=== PATIENT | female | born 1990 | race Caucasian/White ===

== ENCOUNTER 2023-06-08 11:26 | Outpatient (CLI) | payer BC | END 2023-06-08 11:27 | disposition home or self-care (01) | LOC: DTY/OP 11:26 | PROVIDERS: ATTEND Surgery | DX: E66.01 Morbid (severe) obesity due to excess calories (principal) | CPT/HCPCS: 97802 ==

== ENCOUNTER 2023-07-17 14:53 | Outpatient (CLI) | payer BC ==
[2023-07-17 16:55] LABS: #Basophils 0.1 10x3/uL (0.0-0.2); #Eosinphils 0.2 10x3/uL (0.0-0.5); #Monocytes 0.8 10x3/uL (0.0-1.1); #Neutrophils 4.5 10x3/uL (1.5-8.4); %Basophils 0.7 % (0.0-2.0); %Eosinophils 2.7 % (0.0-6.0); %Lymphocytes 31.2 % (18.0-47.0); %Monocytes 9.6 % (0.0-10.0); %Neutrophils 55.6 % (40.0-75.0); Hematocrit 45.5 % (34.9-44.5); Hemoglobin 14.8 g/dL (12.0-15.5); Mean Corpuscular HGB CONC 32.5 g/dL (32.0-36.0); Mean Corpuscular Hemoglobin 28.7 pg (27.0-33.0); Mean Corpuscular Volume 88.3 fl (81.6-98.3); Mean Platelet Volume 10.4 fl (7.4-10.4); Platelet Count 340 10x3/uL (150-450); RBC Distribution Width 13.2 % (11.5-14.5); Red Blood Cell (RBC) Count 5.15 10x6/uL (3.90-5.03); White Blood Cell (WBC) Count 8.1 10x3/uL (3.5-10.5)
[2023-07-17 17:04] LABS: BHCG - Serum Negative (NEGATIVE); Pregs Control Background? CLEAR/WHITE (CLR/WHITE); Pregs Control Bar Appear? YES (CONTROL BAR)
[2023-07-17 17:32] LABS: ALT (SGPT) 45 U/L (8-55); AST (SGOT) 30 U/L (5-34); Albumin 4.4 g/dL (3.5-5.0); Alkaline Phosphatase 71 U/L (40-110); Anion Gap 15 mmol/L (10-20); BUN (Urea Nitrogen) 12 mg/dL (7.0-18.7); Bilirubin, Total 0.5 mg/dL (0.2-1.2); Calc. Creatinine Clearance 0 mL/min (70-130); Calcium 9.7 mg/dL (7.8-10.44); Carbon Dioxide 21 mmol/L (22-29); Chloride 107 mmol/L (98-107); Estimated GFR 96; Globulin 3.6 g/dL (2.4-3.5); Glucose 103 mg/dL (70-105); Potassium 4.4 mmol/L (3.5-5.1); Sodium 139 mmol/L (136-145)
[2023-07-17 20:34] LABS: Hemoglobin A1c 5.4 % (4.0-6.0)
== END 2023-07-17 14:54 | disposition home or self-care (01) ==
LOC: LABBT 14:53
PROVIDERS: ATTEND Surgery
DX: Z01.818 Encounter for other preprocedural examination (principal)
CPT/HCPCS: 80053; 83036; 84703; 85025; 93005; 93010

== ENCOUNTER 2023-07-17 15:00 | Inpatient (IN) | payer BC ==
[2023-07-19 12:46] VITALS: BMI 55.7
[2023-07-24] MEDS ORDERED: Heparin 5,000 UNITS/ML VIAL ONE (06:27)
[2023-07-24] MEDS ORDERED: EPINEPHrine 1 MG/ML AMP ONE (06:37)
[2023-07-24] MEDS ORDERED: Bupivacaine 0.25% HCL 30 ML VIAL ONE (06:37)
[2023-07-24] MEDS ORDERED: Dexmedetomidine 200 MCG/2 ML VIAL ONE (07:20)
[2023-07-24] MEDS ORDERED: Fentanyl 250 MCG/5 ML VIAL ONE (07:20)
[2023-07-24] MEDS ORDERED: SUGAMMADEX SODIUM 200 MG/2 ML VIAL ONE (07:20)
[2023-07-24] MEDS ORDERED: Famotidine/PF 20 mg/2ml Vial ONE (07:20)
[2023-07-24] MEDS ORDERED: Midazolam HCl 2 mg/2 ml Vial ONE (07:21)
[2023-07-24] MEDS ORDERED: Sodium Chloride 0.9% 100 ML ONE (07:28)
[2023-07-24] MEDS ORDERED: CEFAZOLIN 2 GM VIAL ONE (07:28)
[2023-07-24] MEDS ORDERED: PROPOFOL 200 MG/20 ML VIAL ONE (07:45)
[2023-07-24] MEDS ORDERED: Lidocaine 1% PF 5 ML VIAL ONE (07:45)
[2023-07-24] MEDS ORDERED: Ondansetron PF 4 MG/2 ML Vial ONE (07:45)
[2023-07-24] MEDS ORDERED: Dexamethasone 20 MG/5 ML VIAL ONE (07:45)
[2023-07-24] MEDS ORDERED: Ketorolac Tromethamine 30 MG/ML VIAL ONE (07:45)
[2023-07-24] MEDS ORDERED: Rocuronium Bromide 10 MG/ML (10ML VIAL) ONE (07:45)
[2023-07-24] MEDS ORDERED: ePHEDrine Sulfate 50 MG/10 ML VIAL ONE (07:45)
[2023-07-24] MEDS ORDERED: HYDROmorphone 2 MG/ML VIAL SLOW IVP PRN (08:16)
[2023-07-24] MEDS ORDERED: Ondansetron HCl/PF 4 MG/2 ML Vial IVP PRN (08:16)
[2023-07-24] MEDS ORDERED: Promethazine HCl 25 MG/ML VIAL IM PRN ×3 (08:16→09:03)
[2023-07-24] MEDS ORDERED: Meperidine HCl/PF 25 MG/ML VIAL SLOW IVP PRN (08:16)
[2023-07-24] MEDS ORDERED: hydrALAZINE 20 MG/ML VIAL SLOW IVP PRN (08:52)
[2023-07-24] MEDS ORDERED: Hydrocodone-Acetamin 15 ML UDCUP PO PRN (08:52)
[2023-07-24] MEDS ORDERED: Dextrose 50% Abboject 50 ML SYRINGE SLOW IVP PRN (08:52)
[2023-07-24] MEDS ORDERED: Ondansetron PF 4 MG/2 ML Vial IVP PRN ×2 (08:52→09:03)
[2023-07-24] MEDS ORDERED: Glucagon 1 MG/ML KIT IM PRN (08:52)
[2023-07-24] MEDS ORDERED: diphenhydrAMINE 50 MG/ML VIAL IVP PRN ×2 (08:52→09:03)
[2023-07-24] MEDS ORDERED: Dextrose 5% in Water 1,000 ML IV PRN (08:52)
[2023-07-24] MEDS ORDERED: Ipratropium/Albuterol 3 ML NEB NEB PRN (08:52)
[2023-07-24] MEDS ORDERED: diphenhydrAMINE 25 MG CAP PO PRN (09:03)
[2023-07-24] MEDS ORDERED: FENTANYL 500 MCG/10 ML VIAL 2,000 MCG in Sodium Chloride 0.9% 60 ML IV PRN (09:03)
[2023-07-24] MEDS ORDERED: diphenhydrAMINE 50 MG/ML VIAL IM PRN (09:03)
[2023-07-24] MEDS ORDERED: Naloxone HCl 0.4 mg/ml Vial IV PRN (09:03)
[2023-07-24] MEDS ORDERED: fentaNYL 50 mcg/mL 1 mL Vial ONE (09:09)
[2023-07-24] MEDS ORDERED: PCA Communication Order-Pharmacy FS SCH (09:15)
[2023-07-24] MEDS: Pantoprazole 40 MG VIAL IVP SCH (11:03)
[2023-07-24] MEDS: D5 1/2 NS w/20 mEq KCL 1,000 ML IV SCH ×2 (11:06→17:29)
[2023-07-25] MEDS: D5 1/2 NS w/20 mEq KCL 1,000 ML IV SCH ×2 (05:08→08:25)
[2023-07-25] MEDS: Hydrocodone-Acetamin 15 ML UDCUP PO PRN ×2 (06:11→12:35)
[2023-07-25 07:12] LABS: #Basophils 0.1 thou/uL (0.0-0.2); #Eosinphils 0.1 thou/uL (0.0-0.7); #Monocytes 1.2 thou/uL (0.11-0.59); #Neutrophils 7.9 thou/uL (1.40-6.50); %Basophils 0.4 % (0.0-1.0); %Eosinophils 0.4 % (0.0-10.0); %Lymphocytes 26.1 % (21.0-51.0); %Monocytes 9.2 % (0.0-10.0); %Neutrophils 63.6 % (42.0-75.0); Hematocrit 45.7 % (36.0-47.0); Hemoglobin 14.4 g/dL (12.0-16.0); Mean Corpuscular HGB CONC 31.5 g/dL (32.0-36.0); Mean Corpuscular Hemoglobin 29.1 pg (27.0-31.0); Mean Corpuscular Volume 92.3 fl (78.0-98.0); Mean Platelet Volume 10.6 fL (7.4-10.4); Platelet Count 290 10x3/uL (130-400); RBC Distribution Width 13.2 % (11.5-14.5); Red Blood Cell (RBC) Count 4.95 mill/uL (4.20-5.40); White Blood Cell (WBC) Count 12.5 10x3/uL (4.8-10.8)
[2023-07-25 07:36] LABS: Anion Gap 13 mmol/L (10-20); BUN (Urea Nitrogen) 6 mg/dL (7.0-18.7); Calc. Creatinine Clearance 245 mL/min (70-130); Calcium 9.3 mg/dL (7.8-10.44); Carbon Dioxide 20 mmol/L (22-29); Chloride 108 mmol/L (98-107); Estimated GFR 102; Glucose 98 mg/dL (70-105); Potassium 3.8 mmol/L (3.5-5.1); Sodium 137 mmol/L (136-145)
[2023-07-25] MEDS: Pantoprazole 40 MG VIAL IVP SCH (08:24)
[2023-07-25 12:43] VITALS: BP 142/78; TEMP 98.8
== END 2023-07-25 13:55 | disposition home or self-care (01) | DRG 621 ==
LOC: SURG A 07-24 05:54 → SURG B 07-24 10:47
PROVIDERS: ADMIT Surgery; ATTEND Surgery
PROC: 0DB64Z3 Excision of Stomach, Percutaneous Endoscopic Approach, Vertical (ICD-10-PCS; principal; 2023-07-24)
PROC: 8E0W4CZ Robotic Assisted Procedure of Trunk Region, Percutaneous Endoscopic Approach (ICD-10-PCS; 2023-07-24)
PROC: 3E033XZ Introduction of Vasopressor into Peripheral Vein, Percutaneous Approach (ICD-10-PCS; 2023-07-24)
DX: E66.01 Morbid (severe) obesity due to excess calories (principal); Z68.43 Body mass index [BMI] 50.0-59.9, adult; F32.A Depression, unspecified; F10.90 Alcohol use, unspecified, uncomplicated; Z83.3 Family history of diabetes mellitus
CPT/HCPCS: 36415; 80048; 85025; 88307; C9113; J0171; J1100; J1644; J1650; J1885; J2250; J2405; J2704; J3010; J3480; J3490; S0020; S0028